=== PATIENT | female | born 1970 | race Caucasian/White ===

== ENCOUNTER 2019-10-17 21:47 | Emergency (ER) | payer OTHER ==
[~2019-10-17] VITALS: Ht 165.1 cm; Wt 98.4 kg
--- NOTE | 2019-10-17 22:44 | NUR ---
pt is 49 yo female c/o rt shoulder and wrist pain s/p grd level fall at 2030, tripped over doorstep, +cms to rt hand, decreased ROM due to pain, waiting to be evaluated by provider
[2019-10-17] MEDS ORDERED: MELO-100 PO (23:14)
[2019-10-17] MEDS ORDERED: ACET-1059 PO (23:14)
[2019-10-17] MEDS ORDERED: ONDA8TAB6 PO (23:14)
[2019-10-17] MEDS ORDERED: ketorolac trometh inj. 60 MG/2 ML VIAL IM ONE (23:15)
[2019-10-17 23:35] VITALS: BP 138/80
== END 2019-10-17 23:36 | disposition home or self-care (01) ==
LOC: ER 21:48
DX: M25.511 Pain in right shoulder (principal); Z98.890 Other specified postprocedural states; Z88.8 Allergy status to other drugs, medicaments and biological substances; Z79.899 Other long term (current) drug therapy
CPT/HCPCS: 73030; 73090; 96372; 99284; J1885

== ENCOUNTER 2020-02-09 09:46 | Outpatient (CLI) | payer OTHER ==
[~2020-02-09 09:46] MED LIST: MELO-100 PO; ONDA8TAB6 PO
[2020-02-09] MEDS ORDERED: FERR325T28 PO (10:50)
[2020-02-09] MEDS ORDERED: METF-438 PO (10:50)
[2020-02-09] MEDS ORDERED: GLIP10TA21 PO (10:50)
[2020-02-09] MEDS ORDERED: PIOG30TA71 PO (10:50)
[2020-02-09 11:27] LABS: BASOPHILS # (AUTO) 0.1 X10'3 (0-0.2); BASOPHILS % (AUTO) 0.8 % (0-1); EOSINOPHILS # (AUTO) 0.1 X10'3 (0-0.9); EOSINOPHILS % (AUTO) 1.3 % (0-6); LYMPHOCYTES # (AUTO) 1.8 X10'3 (1.1-4.8); LYMPHOCYTES % (AUTO) 22.3 % (21-51); MEAN CORPUSCULAR HEMOGLOBIN 27.9 PG (27.0-31.0); MEAN CORPUSCULAR VOLUME 84.5 FL (78-98); MEAN PLATELET VOLUME 8.6 FL (7.4-10.4); MONOCYTES # (AUTO) 0.5 X10'3 (0-0.9); MONOCYTES % (AUTO) 6.7 % (2-12); NEUTROPHILS # (AUTO) 5.4 X10'3 (1.8-7.7); NEUTROPHILS % (AUTO) 68.9 % (42-75); PRE OP HEMATOCRIT 41.7 % (35.0-45.0); PRE OP HEMOGLOBIN 13.8 g/dL (12.0-16.0); PRE OP PLATELET COUNT 312 X10'3 (140-440); RED BLOOD COUNT 4.94 X10'6 (4.20-5.60); RED CELL DISTRIBUTION WIDTH 14.5 % (11.5-14.5)
[2020-02-09 11:39] LABS: PRE OP INR 0.9 INR; PRE OP PROTIME 9.7 SECONDS (9.0-12.0)
[2020-02-09 11:40] LABS: ALBUMIN 3.3 G/DL (3.4-5.0); ALKALINE PHOSPHATASE 91 IU/L (46-116); BLOOD UREA NITROGEN 6 MG/DL (7-18); BUN/CREATININE RATIO 11.1 (6.6-38.0); CHLORIDE 101 MMOL/L (99-107); CREATININE 0.54 MG/DL (0.40-0.90); PRE OP ALT 18 U/L (30-65); PRE OP ANION GAP 7 (8-16); PRE OP AST 8 U/L (10-37); PRE OP BILIRUB, TOTAL 0.3 MG/DL (0.0-1.0); PRE OP SODIUM 136 MMOL/L (135-145); TOTAL CARBON DIOXIDE 28.1 MMOL/L (24-32); TOTAL PROTEIN 6.7 G/DL (6.4-8.2); eGFR > 90 ML/MIN
[2020-02-09 11:46] LABS: CALCIUM 8.4 MG/DL (8.5-10.1); PRE OP GLUCOSE 341 MG/DL (70-104)
[2020-02-09 13:00] LABS: HEMOGLOBIN A1C 10.6 % (4.5-6.2)
== END 2020-02-09 23:59 | disposition home or self-care (01) ==
LOC: PRE-OP 09:46 → EDSTATUS 02-17 07:30
PROVIDERS: ATTEND Orthopaedic Surgery
DX: Z01.812 Encounter for preprocedural laboratory examination (principal); Z20.828 Contact with and (suspected) exposure to other viral communicable diseases
CPT/HCPCS: 36415; 80053; 83036; 85025; 85610; 85730; 87635; 93005

== ENCOUNTER 2020-03-23 09:57 | Day surgery (SDC) | payer OTHER ==
[2020-03-15 16:58] LABS: BASOPHILS # (AUTO) 0.1 X10'3 (0-0.2); BASOPHILS % (AUTO) 1.3 % (0-1); EOSINOPHILS # (AUTO) 0.2 X10'3 (0-0.9); EOSINOPHILS % (AUTO) 2.4 % (0-6); LYMPHOCYTES # (AUTO) 2.3 X10'3 (1.1-4.8); LYMPHOCYTES % (AUTO) 28.9 % (21-51); MEAN CORPUSCULAR HEMOGLOBIN 28.2 PG (27.0-31.0); MEAN CORPUSCULAR HGB CONC 32.6 g/dL (33.0-36.5); MEAN CORPUSCULAR VOLUME 86.5 FL (78-98); MEAN PLATELET VOLUME 8.6 FL (7.4-10.4); MONOCYTES # (AUTO) 0.6 X10'3 (0-0.9); MONOCYTES % (AUTO) 7.5 % (2-12); NEUTROPHILS # (AUTO) 4.7 X10'3 (1.8-7.7); NEUTROPHILS % (AUTO) 59.9 % (42-75); PRE OP HEMATOCRIT 39.9 % (35.0-45.0); PRE OP PLATELET COUNT 330 X10'3 (140-440); RED BLOOD COUNT 4.61 X10'6 (4.20-5.60); RED CELL DISTRIBUTION WIDTH 14.5 % (11.5-14.5)
[2020-03-15 17:11] LABS: PRE OP PROTIME 10.3 SECONDS (9.0-12.0)
[2020-03-15 17:23] LABS: ALBUMIN 3.6 G/DL (3.4-5.0); ALKALINE PHOSPHATASE 66 IU/L (46-116); BLOOD UREA NITROGEN 13 MG/DL (7-18); BUN/CREATININE RATIO 23.6 (6.6-38.0); CALCIUM 8.9 MG/DL (8.5-10.1); CHLORIDE 103 MMOL/L (99-107); CREATININE 0.55 MG/DL (0.40-0.90); PRE OP ALT 12 U/L (30-65); PRE OP ANION GAP 8 (8-16); PRE OP AST 9 U/L (10-37); PRE OP BILIRUB, TOTAL 0.2 MG/DL (0.0-1.0); PRE OP GLUCOSE 116 MG/DL (70-104); PRE OP POTASSIUM 3.6 MMOL/L (3.4-5.1); PRE OP SODIUM 141 MMOL/L (135-145); TOTAL CARBON DIOXIDE 30.1 MMOL/L (24-32); TOTAL PROTEIN 7.1 G/DL (6.4-8.2); eGFR > 90 ML/MIN
[2020-03-15 17:46] LABS: HCG SERUM QL NEGATIVE
[2020-03-23] VITALS (15 sets, daily range): BP systolic 118–154; BP diastolic 49–86
[~2020-03-23] VITALS: Ht 165.1 cm; Wt 100.7 kg
[~2020-03-23 09:57] MED LIST changes: +ASCO125T PO; +CYAN-34 PO; +FERR325T28 PO; +GLIP10TA21 PO; +INSU100V9 SQ; -MELO-100 PO; +MESSAGE TO NURSING PO ONE; +METF-438 PO; +NOVRI SQ; -ONDA8TAB6 PO; +PIOG30TA71 PO; +ceFAZolin 2gm in dextrose, iso 50 ML IV ONE; +famotidine 20mg tablet PO ONE; +meperidine/PF 25mg/ml syringe IV PRN; +morphine 2 MG/ML inj. syringe IV PRN; +morphine 4 MG/ML inj SYRINge IV PRN; +ondansetron/PF 4mg/2ml inj IV PRN; +proCHLORperazine 10 MG/2 ml inj IV PRN; +ringers solution, lacted 1,000 ML IV SCH; +vancomycin 1,500 MG in NS 300ml IV soln IV ONE
[2020-03-23] MEDS ORDERED: ERGO400C PO (10:47)
[2020-03-23] MEDS ORDERED: BUPIVAcaine/PF 2.5 mg/ml (0.25%) 30ml vial ONE (10:59)
[2020-03-23] MEDS ORDERED: dexamethasone sod phosphate 10mg/ml inj ONE (11:10)
[2020-03-23] MEDS ORDERED: LIDOcaine 1%/PF 5ML 10 MG/ML VIAL ONE (11:10)
[2020-03-23] MEDS ORDERED: sevoflurane 250ml liquid IH ONE (11:10)
[2020-03-23] MEDS ORDERED: fentaNYL/PF 50MCG/1 ML 2ML syringe ONE (11:25)
[2020-03-23] MEDS ORDERED: MIDAZolam 5mg/5ml vial ONE (11:26)
[2020-03-23] MEDS ORDERED: ROPIVAcaine 0.5% (5mg/ml) 30ml vial ONE (11:52)
[2020-03-23] MEDS ORDERED: propofol inj 20 ML IV ONE (11:53)
[2020-03-23] MEDS ORDERED: ondansetron/PF 4mg/2ml inj ONE (11:53)
[2020-03-23] MEDS ORDERED: magnesium hydroxide 30ml (MOM) UD suspension PO PRN (13:45)
[2020-03-23] MEDS ORDERED: HYDROmorphone 1 mg/ml syringe IV PRN (13:45)
[2020-03-23] MEDS ORDERED: diphenhydrAMINE 25mg capsule PO PRN ×2 (13:45)
[2020-03-23] MEDS ORDERED: HYDROcodone/acetaminophen 10/325mg tab PO PRN (13:45)
[2020-03-23] MEDS ORDERED: bisacodyl 10mg suppository rectal RC PRN (13:45)
[2020-03-23] MEDS ORDERED: ondansetron/PF 4mg/2ml inj IV PRN (13:45)
[2020-03-23] MEDS ORDERED: acetaminophen 325mg tablet PO PRN (13:45)
[2020-03-23] MEDS ORDERED: dextrose 50%-water 50ml dispensing syringe IV PRN ×2 (13:50)
[2020-03-23] MEDS ORDERED: MESSAGE TO PHARMACY PO ONE (13:50)
[2020-03-23] MEDS ORDERED: dextrose ORAL solution 15 GM/59 ML bottle PO PRN ×2 (13:50)
[2020-03-23] MEDS ORDERED: glucagon, human recombinant 1mg kit SUBCUT PRN (13:50)
--- NOTE | 2020-03-23 14:00 | NUR ---
Received from OR via BED, accompanied by Anesthesiologist DR BANDA and report given by Anesthesiolgist. PATIENT A&OX4, DENIES PAIN, V/S WNL, NEUROVASCULAR CHECKS INTACT, 20G PIV LUE, SCD ON, DRESSING TO RIGHT SHOULDER CDI W/ SLING WITH ICEBAG APPLIED
--- NOTE | 2020-03-23 14:40 | NUR ---
P. ATIENT A&OX4, DENIES PAIN, V/S WNL, NEUROVASCULAR CHECKS INTACT, 20G PIV LUE, SCD ON, DRESSING TO RIGHT SHOULDER CDI W/ SLING WITH ICEBAG APPLIED .PATIENT TAKEN TO 4021B WITH ALL BELONGINGS AND HOOKED UP TO MONITORS IN ROOM AND REPORT GIVEN TO BUILDING MAINTENANCE REPAIRER WHO HAS TAKEN OVER PATIENT CARE.
[2020-03-23] MEDS: ceFAZolin/D5W- 1GM premix 50 ML IV SCH (16:31)
[2020-03-23] MEDS: potassium Cl 20mEq in NS 1,000 ML IV SCH (16:31)
--- NOTE | 2020-03-23 18:22 | NUR ---
Problems reprioritized. Patient report given, questions answered & plan of care reviewed with Merissa AARON.
--- NOTE | 2020-03-23 18:30 | NUR ---
Patient in room [facility]TH[facility] 4021. I have received report from Mireille AARON and had the opportunity to ask questions and assume patient care.
[2020-03-23] MEDS: insulin Lispro (HumaLOG) vial - multi-dose SQ SCH ×2 (19:21→21:12)
[2020-03-23] MEDS ORDERED: vancomycin/NS 1 GM ADD-VANTAGE 250 ML IV SCH (20:00)
[2020-03-23] MEDS ORDERED: sennosides 8.6mg tablet PO SCH (21:00)
[2020-03-23] MEDS ORDERED: insulin glargine (Lantus) pen - multi-dose SQ SCH (21:00)
[2020-03-24] MEDS: ceFAZolin/D5W- 1GM premix 50 ML IV SCH (00:06)
[2020-03-24 02:20] VITALS: BP 112/52
[2020-03-24] MEDS: potassium Cl 20mEq in NS 1,000 ML IV SCH (03:05)
[2020-03-24 06:00] VITALS: BP 117/61
--- NOTE | 2020-03-24 06:20 | NUR ---
Problems reprioritized. Patient report given, questions answered & plan of care reviewed with Mireille AARON.
[2020-03-24] MEDS: insulin Lispro (HumaLOG) vial - multi-dose SQ SCH (08:52)
[2020-03-24 10:00] VITALS: BP 154/74
--- NOTE | 2020-03-24 10:17 | NUR ---
Spoke with Dr. Suarez, does not want patient to be on ASA due to gastric bypass and states that heparin or lovenox is too agressive for a post op shoulder. Did not want to restart home meds. States its okay to d/c patient. Patient has to go to Dr. Coreas office to roller picker narcotic prescription.
--- NOTE | 2020-03-24 13:10 | NUR ---
Patient ready for D/C. PIV removed canula intact. All belongings gathered and sent home with patient. Discharge instructions given to patient. DM survival guide provided to patient and reviewed. Patient directed to Dr. Coreas office to pick up and delivery driver pain prescription.
== END 2020-03-24 12:45 | disposition home or self-care (01) ==
LOC: PAS 09:57 → ORTHO 4S 12:42 → PAS 03-24 12:45
PROVIDERS: ATTEND Orthopaedic Surgery
DX: S43.421A Sprain of right rotator cuff capsule, initial encounter (principal); M75.101 Unspecified rotator cuff tear or rupture of right shoulder, not specified as traumatic; M25.511 Pain in right shoulder; E11.9 Type 2 diabetes mellitus without complications; W01.198A Fall on same level from slipping, tripping and stumbling with subsequent striking against other object, initial encounter; Y93.89 Activity, other specified; E66.01 Morbid (severe) obesity due to excess calories; Z68.41 Body mass index [BMI] 40.0-44.9, adult
CPT/HCPCS: 23410; 36415; 64415; 76942; 80053; 82948; 84703; 85025; 85610; 85730; 87635; A6223; C1713; J0690; J1815; J2250; J2405; J2704; J3010; J3370; J3480; J3490; J7040; J7120; A4565; A4618; A6253; A6449; A7000; G0378; J1100; J2795

== ENCOUNTER 2020-07-12 18:16 | Emergency (ER) | payer BC, OTHER ==
[~2020-07-12] VITALS: Ht 162.6 cm; Wt 72.7 kg
[2020-07-12 18:45] VITALS: BP 159/98
[2020-07-12] MEDS ORDERED: ketorolac trometh inj. 60 MG/2 ML VIAL IM ONE (20:15)
[2020-07-12] MEDS ORDERED: diazepam 5mg tablet PO ONE (20:15)
[2020-07-12] MEDS ORDERED: HYDROcodone/acetaminophen 10/325mg tab PO ONE (20:20)
[2020-07-12] MEDS ORDERED: DIAZ5TAB22 PO (20:55)
== END 2020-07-12 21:25 | disposition home or self-care (01) ==
LOC: ER 18:16
DX: M54.2 Cervicalgia (principal); M62.838 Other muscle spasm; R51.9 Headache, unspecified; Z98.890 Other specified postprocedural states; Z88.8 Allergy status to other drugs, medicaments and biological substances; Z79.899 Other long term (current) drug therapy
CPT/HCPCS: 82948; 96372; 99283; J1885